=== PATIENT | female | born 2000 | race Two or more races ===

== ENCOUNTER 2022-09-02 17:54 | Inpatient (IN) | payer MEDICAID, OTHER ==
[~2022-09-02] VITALS: Ht 108 cm; Wt 39.9 kg
[2022-09-02] MEDS ORDERED: ALBUTEROL SULF 2.5 MG/0.5ML(0.5%) NEB SOLN HHN ONE (19:45)
[2022-09-02] MEDS ORDERED: IPRATROPIUM BROM 0.5 MG/2.5ML INH SOL HHN ONE (19:45)
[2022-09-02 21:06] LABS: Basophils # (auto) 0 10 ^3/uL (0-0.2); Basophils % (auto) 0.4 % (0.0-2.0); Eosinophils # (auto) 0 10 ^3/uL (0-0.8); Eosinophils % (auto) 0.3 % (0.0-7.0); Hematocrit 38.3 % (36.0-46.0); Hemoglobin 12.1 g/dL (12.2-16.2); Mean Corpuscular Hemoglobin 29.1 pg (28.0-32.0); Mean Corpuscular Hgb Conc. 31.6 g/dL (32.0-36.0); Mean Corpuscular Volume 92.1 fL (80.0-100.0); Monocytes # (auto) 0.6 10 ^3/uL (0-1.3); Monocytes % (auto) 7.6 % (0.0-12.0); Neutrophils # (auto) 5.7 10 ^3/uL (1.6-8.6); Neutrophils % (auto) 67.7 % (37.0-80.0); Nucleated Red Blood Cells % 0.1 %; Red Blood Cells 4.16 10^6/uL (4.0-5.20); Red Cell Distribution Width 14.3 % (11.8-14.3); White Blood Cell 8.4 10^3/uL (4.4-10.8)
[2022-09-02 21:28] LABS: Lactic Acid w/Reflex 2.3 mmol/L (0.4-2.0)
[2022-09-02] MEDS ORDERED: SODIUM CHLORIDE 0.9% 250 ML IV ONE (22:00)
[2022-09-02] MEDS ORDERED: AZITHROMYCIN 500MG/ 250ML 250 ML IV ONE (22:15)
[2022-09-02] MEDS ORDERED: cefTRIAXone 1GM/50ML D5W 50 ML IV ONE (22:30)
[2022-09-02] MEDS ORDERED: ONDANSETRON HCL 4 MG/2 ML VIAL IV PRN (22:30)
[2022-09-02 22:37] LABS: Alanine Aminotransferase 26 U/L (13-56); Chloride 99 mmol/L (98-107); Potassium 4.6 mmol/L (3.5-5.1); Sodium 137 mmol/L (136-145)
[2022-09-02 22:40] LABS: Alkaline Phosphatase 67 U/L (45-117); Bilirubin, Total 0.2 mg/dL (0.2-1.0); Total Protein 7.4 g/dL (6.4-8.2)
[2022-09-02 22:45] LABS: Anion Gap 12 (5-15); Carbon Dioxide 26 mmol/L (21-32); Glucose 100 mg/dL (74-106)
[2022-09-02 22:46] LABS: Albumin 2.4 g/dL (3.4-5.0); Aspartate Aminotransferase 19 U/L (15-37); BUN/Creatinine Ratio 42.9; Blood Urea Nitrogen 12 mg/dL (7-18); Calcium 8.1 mg/dL (8.5-10.1); GFR African American 395 mL/min; GFR Non-African American 326 mL/min
[2022-09-02 22:57] VITALS: BP 127/100
[2022-09-02] MEDS ORDERED: IBUPROFEN 100MG/5ML ORAL SUSP 100 MG/5 ML UD GT PRN (23:00)
[2022-09-02] MEDS ORDERED: ALBUMIN 25% 100 ML IV ONE (23:30)
[2022-09-03] MEDS ORDERED: MORPHINE SULFATE INJ 2 MG/ml SYRG IV PRN (02:00)
[2022-09-03] MEDS ORDERED: NITROGLYCERIN 0.4 MG SL TAB SL PRN (02:00)
[2022-09-03 05:44] LABS: Basophils # (auto) 0 10 ^3/uL (0-0.2); Basophils % (auto) 0.5 % (0.0-2.0); Eosinophils # (auto) 0 10 ^3/uL (0-0.8); Eosinophils % (auto) 0.1 % (0.0-7.0); Hematocrit 32.5 % (36.0-46.0); Hemoglobin 11.1 g/dL (12.2-16.2); Lymphocytes # (auto) 2.3 10 ^3/uL (0.4-5.4); Mean Corpuscular Hemoglobin 30.4 pg (28.0-32.0); Mean Corpuscular Hgb Conc. 34.2 g/dL (32.0-36.0); Mean Corpuscular Volume 88.9 fL (80.0-100.0); Monocytes # (auto) 0.6 10 ^3/uL (0-1.3); Monocytes % (auto) 8.7 % (0.0-12.0); Neutrophils # (auto) 4.2 10 ^3/uL (1.6-8.6); Neutrophils % (auto) 58.7 % (37.0-80.0); Nucleated Red Blood Cells % 0.1 %; Red Blood Cells 3.65 10^6/uL (4.0-5.20); Red Cell Distribution Width 13.6 % (11.8-14.3); White Blood Cell 7.1 10^3/uL (4.4-10.8)
[2022-09-03 06:03] LABS: Potassium 4.3 mmol/L (3.5-5.1)
[2022-09-03 06:11] LABS: Albumin 2.6 g/dL (3.4-5.0); BUN/Creatinine Ratio 42.9; Bilirubin, Total 0.2 mg/dL (0.2-1.0); Calcium 8.4 mg/dL (8.5-10.1); Total Protein 7.2 g/dL (6.4-8.2)
[2022-09-03] MEDS: cefTRIAXone 1GM/50ML D5W 50 ML IV SCH (09:15)
[2022-09-03] MEDS: IPRATROPIUM BROM 0.5 MG/2.5ML INH SOL NEB PRN ×2 (09:29→15:38)
[2022-09-03] MEDS: ALBUTEROL SULF 2.5 MG/0.5ML(0.5%) NEB SOLN NEB PRN ×2 (09:29→15:38)
[2022-09-03] MEDS: ENOXAPARIN SOD 30 MG/0.3 ML SYRINGE SC SCH (10:00)
[2022-09-03] MEDS: SOD CHL 0.45% 1,000 ML IV SCH ×2 (10:13→19:00)
[2022-09-03] MEDS: PHENobarbital 20 MG/5 ML UD GT SCH ×2 (10:13→22:15)
[2022-09-03] MEDS: AZITHROMYCIN 500MG/ 250ML 250 ML IV SCH (10:18)
[2022-09-03] MEDS: FAMOTIDINE (10MG/ML) 2ML VL IV SCH (10:18)
[2022-09-03 22:00] VITALS: BP 106/68
[2022-09-03] MEDS: IPRATROPIUM BROM 0.5 MG/2.5ML INH SOL NEB SCH (23:12)
[2022-09-03] MEDS: ALBUTEROL SULF 2.5 MG/0.5ML(0.5%) NEB SOLN NEB SCH (23:13)
[2022-09-04] MEDS: IPRATROPIUM BROM 0.5 MG/2.5ML INH SOL NEB SCH ×6 (03:22→22:33)
[2022-09-04] MEDS: ALBUTEROL SULF 2.5 MG/0.5ML(0.5%) NEB SOLN NEB SCH ×6 (03:22→22:33)
[2022-09-04 05:00] VITALS: BP 131/67
[2022-09-04 08:00] VITALS: BP 109/71
[2022-09-04 09:09] VITALS: BP 109/71
[2022-09-04] MEDS: cefTRIAXone 1GM/50ML D5W 50 ML IV SCH (09:40)
[2022-09-04] MEDS: FAMOTIDINE (10MG/ML) 2ML VL IV SCH (09:40)
[2022-09-04] MEDS: PHENobarbital 20 MG/5 ML UD GT SCH ×2 (09:41→22:37)
[2022-09-04] MEDS: ENOXAPARIN SOD 30 MG/0.3 ML SYRINGE SC SCH (10:00)
[2022-09-04] MEDS: AZITHROMYCIN 500MG/ 250ML 250 ML IV SCH (10:28)
[2022-09-04] MEDS: SOD CHL 0.45% 1,000 ML IV SCH (11:04)
[2022-09-04 12:24] VITALS: BP 100/62
[2022-09-04 17:00] VITALS: BP 123/80
[2022-09-04] MEDS: FREE WATER GT SCH ×4 (17:16→22:51)
[2022-09-04 22:00] VITALS: BP 136/71
[2022-09-05] VITALS (7 sets, daily range): BP systolic 110–149; BP diastolic 57–99
[2022-09-05] MEDS: FREE WATER GT SCH ×12 (00:03→21:55)
[2022-09-05] MEDS: IPRATROPIUM BROM 0.5 MG/2.5ML INH SOL NEB SCH ×6 (02:32→22:28)
[2022-09-05] MEDS: ALBUTEROL SULF 2.5 MG/0.5ML(0.5%) NEB SOLN NEB SCH ×6 (02:32→22:28)
[2022-09-05] MEDS ORDERED: IBUPROFEN 100MG/5ML ORAL SUSP 100 MG/5 ML UD PO PRN (05:30)
[2022-09-05] MEDS: SOD CHL 0.45% 1,000 ML IV SCH (09:17)
[2022-09-05] MEDS: cefTRIAXone 1GM/50ML D5W 50 ML IV SCH (09:19)
[2022-09-05] MEDS: FAMOTIDINE (10MG/ML) 2ML VL IV SCH (10:02)
[2022-09-05] MEDS: PHENobarbital 20 MG/5 ML UD GT SCH ×2 (10:03→21:39)
[2022-09-05] MEDS: AZITHROMYCIN 500MG/ 250ML 250 ML IV SCH (10:03)
[2022-09-05] MEDS: [UNRECOGNIZED DRUG - MIXTURE] JT SCH (10:27)
[2022-09-05] MEDS ORDERED: SIMETHICONE 40 MG/0.6 ML ORAL DROP GT PRN (11:45)
[2022-09-06] MEDS: FREE WATER GT SCH ×12 (00:22→22:00)
[2022-09-06 02:33] VITALS: BP 120/79
[2022-09-06] MEDS: ALBUTEROL SULF 2.5 MG/0.5ML(0.5%) NEB SOLN NEB SCH ×6 (03:02→22:28)
[2022-09-06] MEDS: IPRATROPIUM BROM 0.5 MG/2.5ML INH SOL NEB SCH ×6 (03:02→22:28)
[2022-09-06 05:00] VITALS: BP 144/96
[2022-09-06] MEDS: SOD CHL 0.45% 1,000 ML IV SCH (06:33)
[2022-09-06 09:16] VITALS: BP 155/100
[2022-09-06] MEDS: FAMOTIDINE (10MG/ML) 2ML VL IV SCH (10:47)
[2022-09-06] MEDS: PHENobarbital 20 MG/5 ML UD GT SCH ×2 (10:47→22:17)
[2022-09-06] MEDS: cefTRIAXone 1GM/50ML D5W 50 ML IV SCH (10:48)
[2022-09-06] MEDS: AZITHROMYCIN 500MG/ 250ML 250 ML IV SCH (10:48)
[2022-09-06] MEDS: [UNRECOGNIZED DRUG - MIXTURE] JT SCH (10:49)
[2022-09-06 12:15] VITALS: BP 140/97
[2022-09-06 17:25] VITALS: BP 164/101
[2022-09-06 22:00] VITALS: BP 153/97
[2022-09-07] MEDS: FREE WATER GT SCH ×12 (02:00→22:15)
[2022-09-07] MEDS: ALBUTEROL SULF 2.5 MG/0.5ML(0.5%) NEB SOLN NEB SCH ×6 (02:28→22:15)
[2022-09-07] MEDS: IPRATROPIUM BROM 0.5 MG/2.5ML INH SOL NEB SCH ×6 (02:28→22:15)
[2022-09-07] MEDS: SOD CHL 0.45% 1,000 ML IV SCH ×2 (03:00→22:31)
[2022-09-07 05:00] VITALS: BP 171/93
[2022-09-07] MEDS ORDERED: hydrALAZINE HCL 20 MG/ML VL IV ONE (06:30)
[2022-09-07 09:00] VITALS: BP 147/100
[2022-09-07] MEDS ORDERED: FLORASTOR (S. BOULARDII) 250 MG CAP PO SCH (10:00)
[2022-09-07] MEDS ORDERED: LOPERAMIDE 1 mg/7.5ml ORAL soln JT ONE (10:15)
[2022-09-07] MEDS: cefTRIAXone 1GM/50ML D5W 50 ML IV SCH (11:18)
[2022-09-07] MEDS: FAMOTIDINE (10MG/ML) 2ML VL IV SCH (11:19)
[2022-09-07] MEDS: AZITHROMYCIN 500MG/ 250ML 250 ML IV SCH (11:19)
[2022-09-07] MEDS: FLORASTOR (S. BOULARDII) 250 MG CAP JT SCH (11:19)
[2022-09-07] MEDS: PHENobarbital 20 MG/5 ML UD GT SCH ×2 (11:51→22:31)
[2022-09-07] MEDS: [UNRECOGNIZED DRUG - MIXTURE] JT SCH (11:51)
[2022-09-07 13:00] VITALS: BP 156/99
[2022-09-07] MEDS ORDERED: AMIODARONE HCL 200 MG TAB PO ONE (16:15)
[2022-09-07 17:00] VITALS: BP 120/75
[2022-09-07] MEDS: AMIODARONE HCL 200 MG TAB PO SCH ×2 (18:23→18:36)
[2022-09-07 22:00] VITALS: BP 133/70
[2022-09-08] MEDS: FREE WATER GT SCH ×12 (00:40→22:16)
[2022-09-08] MEDS: IPRATROPIUM BROM 0.5 MG/2.5ML INH SOL NEB SCH ×2 (02:25→06:33)
[2022-09-08] MEDS: ALBUTEROL SULF 2.5 MG/0.5ML(0.5%) NEB SOLN NEB SCH ×6 (02:25→22:05)
[2022-09-08 05:00] VITALS: BP 142/82
[2022-09-08] MEDS: AMIODARONE HCL 200 MG TAB PO SCH ×2 (06:02→16:39)
[2022-09-08 08:00] VITALS: BP 121/84
[2022-09-08 09:02] VITALS: BP 149/84
[2022-09-08] MEDS ORDERED: METOPROLOL SUCCINATE XL 50 MG TAB PO SCH (10:00)
[2022-09-08] MEDS: cefTRIAXone 1GM/50ML D5W 50 ML IV SCH (10:22)
[2022-09-08] MEDS: PHENobarbital 20 MG/5 ML UD GT SCH ×2 (10:23→22:12)
[2022-09-08] MEDS: FLORASTOR (S. BOULARDII) 250 MG CAP JT SCH (10:23)
[2022-09-08] MEDS: [UNRECOGNIZED DRUG - MIXTURE] JT SCH (10:30)
[2022-09-08] MEDS ORDERED: ATENOLOL 25 MG TAB GT ONE (10:30)
[2022-09-08 13:05] VITALS: BP 121/84
[2022-09-08 17:00] VITALS: BP 148/85
[2022-09-08 22:00] VITALS: BP 122/58
[2022-09-08] MEDS: ATENOLOL 25 MG TAB GT SCH (22:15)
[2022-09-09] MEDS: FREE WATER GT SCH ×8 (02:15→14:30)
[2022-09-09] MEDS: ALBUTEROL SULF 2.5 MG/0.5ML(0.5%) NEB SOLN NEB SCH ×3 (02:22→15:40)
[2022-09-09 03:27] VITALS: BP 122/58
[2022-09-09 05:00] VITALS: BP 137/84
[2022-09-09] MEDS: AMIODARONE HCL 200 MG TAB PO SCH (05:16)
[2022-09-09 09:00] VITALS: BP 94/47
[2022-09-09] MEDS: cefTRIAXone 1GM/50ML D5W 50 ML IV SCH (09:30)
[2022-09-09] MEDS: [UNRECOGNIZED DRUG - MIXTURE] JT SCH (09:59)
[2022-09-09] MEDS: PHENobarbital 20 MG/5 ML UD GT SCH (09:59)
[2022-09-09] MEDS: ATENOLOL 25 MG TAB GT SCH (10:00)
[2022-09-09] MEDS: FLORASTOR (S. BOULARDII) 250 MG CAP JT SCH (10:00)
[2022-09-09] MEDS ORDERED: LANS15CA25 PO (12:19)
[2022-09-09] MEDS ORDERED: PHEN32.44 PO (12:19)
[2022-09-09] MEDS ORDERED: [UNRECOGNIZED DRUG - CODE] IJ (12:20)
[2022-09-09] MEDS ORDERED: AMIT10TA9 GT (12:22)
[2022-09-09] MEDS ORDERED: MULT-1058 PO (12:24)
[2022-09-09] MEDS ORDERED: POLY33504 PO (12:25)
[2022-09-09] MEDS ORDERED: FLUT500M2 INH (12:25)
[2022-09-09] MEDS ORDERED: ACET-1753 PO (12:26)
[2022-09-09] MEDS ORDERED: IBUP100C23 PO (12:26)
[2022-09-09] MEDS ORDERED: DIPH1CHW2 PO (12:27)
[2022-09-09] MEDS ORDERED: SIME80CH6 PO (12:28)
[2022-09-09] MEDS ORDERED: ACE1030 IN (12:29)
[2022-09-09 13:00] VITALS: BP 128/92
[2022-09-09 13:59] VITALS: BP 130/82
== END 2022-09-09 15:15 | disposition home or self-care (01) | DRG 137 ==
LOC: ER 18:00 → OVERFLOW 09-03 01:56 → EAST 09-03 21:14 → TELE-EAST 09-07 19:37
PROVIDERS: ADMIT Nurse Practitioner Family; ATTEND Internal Medicine
DX: J69.0 Pneumonitis due to inhalation of food and vomit (principal); E87.20 Acidosis, unspecified; I47.20 Ventricular tachycardia, unspecified; G80.9 Cerebral palsy, unspecified; E88.09 Other disorders of plasma-protein metabolism, not elsewhere classified; Z20.822 Contact with and (suspected) exposure to COVID-19; F81.9 Developmental disorder of scholastic skills, unspecified; G40.909 Epilepsy, unspecified, not intractable, without status epilepticus; K21.9 Gastro-esophageal reflux disease without esophagitis; Z74.01 Bed confinement status
CPT/HCPCS: 36415; 71045; 80053; 80184; 83605; 83735; 83880; 84443; 84484; 85025; 85379; 87040; 87426; 87804; 93306; 94640; 94668; 96361; 96365; 96367; G0378; J0696; J3490; P9047

== ENCOUNTER 2023-10-02 13:39 | Inpatient (IN) | payer MEDICAID ==
[~2023-10-02] VITALS: Ht 106.7 cm; Wt 44.6 kg
[~2023-10-02 13:39] MED LIST: ACE1030 IN; ACET-1753 PO; AMIT10TA9 GT; DIPH1CHW2 PO; FLUT500M2 INH; IBUP100C23 PO; LANS15CA25 PO; MULT-1058 PO; PHEN32.44 PO; POLY33504 PO; SIME80CH49 PO; [UNRECOGNIZED DRUG - CODE] IJ
[2023-10-02] MEDS ORDERED: SODIUM CHLORIDE 0.9% 500 ML IV ONE (14:15)
[2023-10-02] MEDS ORDERED: PIPERACILLIN-TAZOB 2.25GM 50 ML IV ONE (14:30)
[2023-10-02 14:50] VITALS: PULSE 96
[2023-10-02 15:18] LABS: Basophils # (auto) 0 10 ^3/uL (0-0.2); Basophils % (auto) 0.3 % (0.0-2.0); Eosinophils # (auto) 0 10 ^3/uL (0-0.8); Eosinophils % (auto) 0.1 % (0.0-7.0); Hematocrit 35.5 % (36.0-46.0); Hemoglobin 11.7 g/dL (12.2-16.2); Lymphocytes # (auto) 2.2 10 ^3/uL (0.4-5.4); Lymphocytes % (auto) 15.6 % (10.0-50.0); Mean Corpuscular Hemoglobin 31.4 pg (28.0-32.0); Mean Corpuscular Volume 95.1 fL (80.0-100.0); Monocytes # (auto) 0.9 10 ^3/uL (0-1.3); Monocytes % (auto) 6.5 % (0.0-12.0); Neutrophils # (auto) 10.8 10 ^3/uL (1.6-8.6); Neutrophils % (auto) 77.5 % (37.0-80.0); Red Blood Cells 3.74 10^6/uL (4.0-5.20); Red Cell Distribution Width 14.1 % (11.8-14.3); White Blood Cell 13.9 10^3/uL (4.4-10.8)
[2023-10-02 15:28] LABS: Alanine Aminotransferase 44 U/L (7-40); Albumin 3.1 g/dL (3.2-4.8); Alkaline Phosphatase 54 U/L (46-116); Anion Gap 11 (5-15); Aspartate Aminotransferase 57 U/L (13-40); BUN/Creatinine Ratio 38.9 (10.0-20.0); Blood Urea Nitrogen 7 mg/dL (9-23); Calcium 6.3 mg/dL (8.5-10.1); Carbon Dioxide 23 mmol/L (20-30); Chloride 91 mmol/L (98-107); Glucose 67 mg/dL (74-106); Potassium 4.8 mmol/L (3.5-5.1); Sodium 125 mmol/L (136-145)
[2023-10-02 15:29] LABS: Bilirubin, Total 0.3 mg/dL (0.2-1.0); Total Protein 4.4 g/dL (5.7-8.2)
[2023-10-02 15:31] LABS: INR 1.04 (0.9-1.15); Partial Thromboplastin Time 29.3 SEC (24.5-34.5); Prothrombin Time 10.9 sec (9.3-11.8)
[2023-10-02 16:33] LABS: Magnesium 2.1 mg/dL (1.6-2.6)
[2023-10-02] MEDS ORDERED: IPRATROPIUM BROM 0.5 MG/2.5ML INH SOL ONE (17:07)
[2023-10-02] MEDS ORDERED: ALBUTEROL MEDNEB 2.5 mg/3ml NEB ONE (17:08)
[2023-10-02] MEDS ORDERED: ALBUTEROL MEDNEB 2.5 mg/3ml NEB NEB ONE (17:15)
[2023-10-02] MEDS ORDERED: IPRATROPIUM BROM 0.5 MG/2.5ML INH SOL NEB ONE (17:15)
[2023-10-02] MEDS ORDERED: ONDANSETRON HCL 4 MG/2 ML VIAL IV PRN (19:15)
[2023-10-02] MEDS ORDERED: NITROGLYCERIN 0.4 MG SL TAB SL PRN (19:15)
[2023-10-02] MEDS ORDERED: MORPHINE SULFATE INJ 2 MG/ml SYRG IV PRN (19:15)
[2023-10-02] MEDS ORDERED: ALBUTEROL MEDNEB 2.5 mg/3ml NEB NEB PRN (19:15)
[2023-10-02 20:05] VITALS: PULSE 105; RESP 21; O2SAT 100
[2023-10-02 21:40] VITALS: PULSE 95; PULSE 96; RESP 18; O2SAT 95; O2SAT 96
[2023-10-02] MEDS: ALBUTEROL MEDNEB 2.5 mg/3ml NEB NEB SCH (21:49)
[2023-10-02] MEDS: IPRATROPIUM BROM 0.5 MG/2.5ML INH SOL NEB SCH (21:49)
[2023-10-02 21:56] VITALS: PULSE 101; RESP 20; O2SAT 99
[2023-10-02] MEDS ORDERED: AMITRIPTYLINE HCL 10 MG TAB GT SCH (22:00)
[2023-10-02] MEDS: SODIUM CHLORIDE 0.9% 1,000 ML IV SCH (22:15)
[2023-10-02] MEDS: PIPERACILLIN-TAZOB 2.25GM 50 ML IV SCH (22:15)
[2023-10-02 23:33] VITALS: BP 90/54; PULSE 80; RESP 18; O2SAT 96
[2023-10-03] VITALS (10 sets, daily range): PULSE 73–111; RESP 18–30; O2SAT 94–99
[2023-10-03] MEDS ORDERED: PHENobarbital 20 MG/5 ML UD GT ONE (00:30)
[2023-10-03] MEDS: IPRATROPIUM BROM 0.5 MG/2.5ML INH SOL NEB SCH ×5 (02:27→18:13)
[2023-10-03] MEDS: ALBUTEROL MEDNEB 2.5 mg/3ml NEB NEB SCH ×5 (02:27→18:14)
[2023-10-03] MEDS: ACETYLCYSTEINE IN SCH ×3 (02:28→13:25)
[2023-10-03] MEDS: PIPERACILLIN-TAZOB 2.25GM 50 ML IV SCH ×4 (03:09→21:00)
[2023-10-03] MEDS: SIMETHICONE 80 MG CHEWABLE TABLET PO SCH ×2 (06:00)
[2023-10-03] MEDS ORDERED: ACETYLCYSTEINE 10 %(100MG/ML) SOL 4ML ONE (06:39)
[2023-10-03 06:52] LABS: Alanine Aminotransferase 40 U/L (7-40); Alkaline Phosphatase 65 U/L (46-116); Anion Gap 6 (5-15); Aspartate Aminotransferase 35 U/L (13-40); BUN/Creatinine Ratio 19.2 (10.0-20.0); Blood Urea Nitrogen 5 mg/dL (9-23); Calcium 8.3 mg/dL (8.5-10.1); Carbon Dioxide 27 mmol/L (20-30); Chloride 102 mmol/L (98-107); Glucose 94 mg/dL (74-106); Potassium 3.5 mmol/L (3.5-5.1)
[2023-10-03 06:53] LABS: Bilirubin, Total 0.3 mg/dL (0.2-1.0); Total Protein 6.3 g/dL (5.7-8.2)
[2023-10-03 06:55] LABS: Sodium 135 mmol/L (136-145)
[2023-10-03 06:59] LABS: Basophils # (auto) 0 10 ^3/uL (0-0.2); Basophils % (auto) 0.2 % (0.0-2.0); Eosinophils # (auto) 0 10 ^3/uL (0-0.8); Eosinophils % (auto) 0.2 % (0.0-7.0); Hemoglobin 10.5 g/dL (12.2-16.2); Lymphocytes # (auto) 1.8 10 ^3/uL (0.4-5.4); Lymphocytes % (auto) 17.8 % (10.0-50.0); Mean Corpuscular Hemoglobin 31.9 pg (28.0-32.0); Mean Corpuscular Volume 91.2 fL (80.0-100.0); Monocytes # (auto) 0.8 10 ^3/uL (0-1.3); Monocytes % (auto) 8.4 % (0.0-12.0); Neutrophils # (auto) 7.5 10 ^3/uL (1.6-8.6); Neutrophils % (auto) 73.4 % (37.0-80.0); Red Blood Cells 3.29 10^6/uL (4.0-5.20); Red Cell Distribution Width 13.7 % (11.8-14.3); White Blood Cell 10.1 10^3/uL (4.4-10.8)
[2023-10-03] MEDS: SODIUM CHLORIDE 0.9% 1,000 ML IV SCH (08:35)
[2023-10-03] MEDS ORDERED: AMIT10TA12 JT (08:51)
[2023-10-03] MEDS ORDERED: ACE1030 IN (08:51)
[2023-10-03] MEDS ORDERED: ACET-1442 JT (08:51)
[2023-10-03] MEDS ORDERED: ACE1030 INH (08:51)
[2023-10-03] MEDS ORDERED: DIPH1CHW2 PO (08:51)
[2023-10-03] MEDS ORDERED: [UNRECOGNIZED DRUG - CODE] JT (08:52)
[2023-10-03] MEDS ORDERED: FLUT50SP (08:52)
[2023-10-03] MEDS ORDERED: LANS30CA57 GT (08:52)
[2023-10-03] MEDS ORDERED: NORE1TAB JT (08:52)
[2023-10-03] MEDS ORDERED: POLY33505 JT (08:52)
[2023-10-03] MEDS ORDERED: IBUP100S73 JT (08:52)
[2023-10-03] MEDS ORDERED: AMIO200T33 JT (08:52)
[2023-10-03] MEDS ORDERED: ATEN-60 JT (08:52)
[2023-10-03] MEDS ORDERED: SIME80CH49 JT (08:52)
[2023-10-03] MEDS ORDERED: MULTLIQ28 OR (08:52)
[2023-10-03] MEDS ORDERED: PHEN32.44 JT (08:52)
[2023-10-03] MEDS ORDERED: MULTIPLE VITAMINS W/ MINERALS TAB PO SCH (10:00)
[2023-10-03] MEDS ORDERED: POLYETHYLENE GLYCOL 17 GM PWDR PO SCH (10:00)
[2023-10-03 12:21] LABS: COVID19 ANTIGEN SOFIA FIA NEGATIVE (NEGATIVE); Rapid Influenza A Negative (Negative); Rapid Influenza B Negative (Negative)
[2023-10-03] MEDS ORDERED: Jevity 1.2 Cal/Fiber 1 Liter GT SCH (12:45)
[2023-10-03] MEDS: PHENobarbital 20 MG/5 ML UD GT SCH ×2 (13:14→23:32)
[2023-10-03] MEDS ORDERED: IPRATROPIUM BROM 0.5 MG/2.5ML INH SOL NEB SCH (18:00)
[2023-10-03] MEDS: FREE WATER GT SCH (18:00)
[2023-10-03] MEDS: ACETYLCYSTEINE 20%(200MG/ML) SOL 4ML NEB SCH (18:13)
[2023-10-03] MEDS: AMITRIPTYLINE HCL 10 MG TAB GT SCH (23:30)
[2023-10-04] VITALS (15 sets, daily range): BP systolic 112–116; BP diastolic 77–81; PULSE 72–134; RESP 16–22; TEMP 97.9–98.8; O2SAT 94–100
[2023-10-04] MEDS: FREE WATER GT SCH ×4 (00:30→17:35)
[2023-10-04] MEDS: ALBUTEROL MEDNEB 2.5 mg/3ml NEB NEB SCH ×4 (00:45→19:22)
[2023-10-04] MEDS: ACETYLCYSTEINE 20%(200MG/ML) SOL 4ML NEB SCH ×4 (00:45→19:21)
[2023-10-04] MEDS: IPRATROPIUM BROM 0.5 MG/2.5ML INH SOL NEB SCH ×4 (00:45→19:22)
[2023-10-04] MEDS: PIPERACILLIN-TAZOB 2.25GM 50 ML IV SCH ×4 (03:00→21:22)
[2023-10-04] MEDS: SODIUM CHLORIDE 0.9% 1,000 ML IV SCH (03:15)
[2023-10-04 07:04] LABS: Anion Gap 5 (5-15); Carbon Dioxide 29 mmol/L (20-30); Chloride 102 mmol/L (98-107); Potassium 3.4 mmol/L (3.5-5.1); Sodium 136 mmol/L (136-145)
[2023-10-04 07:05] LABS: Calcium 8.4 mg/dL (8.7-10.4)
[2023-10-04 07:10] LABS: Glucose 119 mg/dL (74-106)
[2023-10-04 07:22] LABS: BUN/Creatinine Ratio 16.7 (10.0-20.0); Blood Urea Nitrogen < 5 mg/dL (9-23)
[2023-10-04 07:23] LABS: Basophils # (auto) 0 10 ^3/uL (0-0.2); Basophils % (auto) 0.5 % (0.0-2.0); Eosinophils # (auto) 0.1 10 ^3/uL (0-0.8); Eosinophils % (auto) 0.5 % (0.0-7.0); Hemoglobin 10.4 g/dL (12.2-16.2); Lymphocytes % (auto) 19.9 % (10.0-50.0); Mean Corpuscular Hemoglobin 31.5 pg (28.0-32.0); Mean Corpuscular Hgb Conc. 33.5 g/dL (32.0-36.0); Mean Corpuscular Volume 94.1 fL (80.0-100.0); Monocytes # (auto) 0.9 10 ^3/uL (0-1.3); Monocytes % (auto) 9.2 % (0.0-12.0); Neutrophils # (auto) 7.1 10 ^3/uL (1.6-8.6); Neutrophils % (auto) 69.9 % (37.0-80.0); Nucleated Red Blood Cells % 0.1 %; Red Blood Cells 3.29 10^6/uL (4.0-5.20); Red Cell Distribution Width 13.6 % (11.8-14.3); White Blood Cell 10.1 10^3/uL (4.4-10.8)
[2023-10-04] MEDS: PHENobarbital 20 MG/5 ML UD GT SCH ×2 (09:19→21:41)
[2023-10-04] MEDS ORDERED: SIMETHICONE 40 MG/0.6 ML ORAL DROP PO PRN (10:45)
[2023-10-04] MEDS ORDERED: SIMETHICONE 40 MG/0.6 ML ORAL DROP JT PRN (11:00)
[2023-10-04] MEDS: SIMETHICONE 40 MG/0.6 ML ORAL DROP JT PRN (12:05)
[2023-10-04] MEDS: AMITRIPTYLINE HCL 10 MG TAB GT SCH (21:38)
[2023-10-04] MEDS: DOCUSATE ORAL LIQUID 100 MG/10 ML UD GT SCH (21:41)
[2023-10-05] VITALS (10 sets, daily range): BP systolic 113–132; BP diastolic 85–98; PULSE 65–136; RESP 17–21; TEMP 97.6–98.1; O2SAT 92–100
[2023-10-05] MEDS: FREE WATER GT SCH ×4 (00:22→18:00)
[2023-10-05] MEDS: IPRATROPIUM BROM 0.5 MG/2.5ML INH SOL NEB SCH ×5 (00:28→18:26)
[2023-10-05] MEDS: ACETYLCYSTEINE 20%(200MG/ML) SOL 4ML NEB SCH ×4 (00:28→18:26)
[2023-10-05] MEDS: ALBUTEROL MEDNEB 2.5 mg/3ml NEB NEB SCH ×4 (00:29→18:26)
[2023-10-05] MEDS: PIPERACILLIN-TAZOB 2.25GM 50 ML IV SCH ×4 (03:06→21:03)
[2023-10-05 05:35] LABS: Hematocrit 33.5 % (36.0-46.0); Hemoglobin 11.3 g/dL (12.2-16.2); Mean Corpuscular Hemoglobin 31.8 pg (28.0-32.0); Mean Corpuscular Hgb Conc. 33.8 g/dL (32.0-36.0); Mean Corpuscular Volume 93.9 fL (80.0-100.0); Red Blood Cells 3.57 10^6/uL (4.0-5.20); Red Cell Distribution Width 13.6 % (11.8-14.3); White Blood Cell 9.1 10^3/uL (4.4-10.8)
[2023-10-05 05:49] LABS: Chloride 101 mmol/L (98-107); Potassium 3.8 mmol/L (3.5-5.1); Sodium 138 mmol/L (136-145)
[2023-10-05 05:50] LABS: Anion Gap 11 (5-15); Carbon Dioxide 26 mmol/L (20-30)
[2023-10-05 05:55] LABS: Glucose 88 mg/dL (74-106)
[2023-10-05] MEDS: OMEPRAZOLE 20MG/10ML ORAL SUSP GT SCH (06:12)
[2023-10-05] MEDS: Jevity 1.2 Cal/Fiber 1 Liter GT SCH (06:22)
[2023-10-05 06:46] LABS: BUN/Creatinine Ratio 17.9 (10.0-20.0); Blood Urea Nitrogen < 5 mg/dL (9-23)
[2023-10-05 06:48] LABS: Basophils % (manual) 0 (0.0-2.0); Blast Cells 0; Eosinophils % (manual) 0 (0-7); Metamyelocytes % 0; Myelocytes % 0; Reactive Lymphocytes 0
[2023-10-05 09:12] LABS: Band Neutrophils % (manual) 4; Lymphocytes % (manual) 25 (10.0-50.0); Monocytes % (manual) 9 (0-12); Promyelocytes % 2
[2023-10-05 09:13] LABS: Platelet Estimate Adequate; Toxic Granulation Slight
[2023-10-05] MEDS: DOCUSATE ORAL LIQUID 100 MG/10 ML UD GT SCH ×3 (10:00→21:04)
[2023-10-05] MEDS: FLORASTOR (S. BOULARDII) 250 MG CAP PO SCH (10:03)
[2023-10-05] MEDS: AMITRIPTYLINE HCL 10 MG TAB GT SCH ×2 (10:04→21:04)
[2023-10-05] MEDS: PHENobarbital 20 MG/5 ML UD GT SCH ×2 (10:04→21:04)
[2023-10-05] MEDS: ALYACEN GT SCH (15:33)
[2023-10-06] VITALS (13 sets, daily range): BP systolic 110–130; BP diastolic 65–90; PULSE 110–132; RESP 18–28; TEMP 97.1–100.3; O2SAT 93–99
[2023-10-06] MEDS: FREE WATER GT SCH ×4 (00:17→18:29)
[2023-10-06] MEDS: PIPERACILLIN-TAZOB 2.25GM 50 ML IV SCH ×4 (03:08→21:07)
[2023-10-06 06:14] LABS: Basophils # (auto) 0 10 ^3/uL (0-0.2); Basophils % (auto) 0.4 % (0.0-2.0); Eosinophils # (auto) 0.1 10 ^3/uL (0-0.8); Eosinophils % (auto) 1.1 % (0.0-7.0); Hematocrit 31.4 % (36.0-46.0); Hemoglobin 10.4 g/dL (12.2-16.2); Lymphocytes # (auto) 2.4 10 ^3/uL (0.4-5.4); Lymphocytes % (auto) 24.9 % (10.0-50.0); Mean Corpuscular Hemoglobin 30.8 pg (28.0-32.0); Mean Corpuscular Volume 93.3 fL (80.0-100.0); Monocytes # (auto) 0.7 10 ^3/uL (0-1.3); Monocytes % (auto) 7.8 % (0.0-12.0); Neutrophils # (auto) 6.3 10 ^3/uL (1.6-8.6); Neutrophils % (auto) 65.8 % (37.0-80.0); Red Blood Cells 3.36 10^6/uL (4.0-5.20); Red Cell Distribution Width 13.7 % (11.8-14.3); White Blood Cell 9.5 10^3/uL (4.4-10.8)
[2023-10-06] MEDS: OMEPRAZOLE 20MG/10ML ORAL SUSP GT SCH (06:17)
[2023-10-06 06:25] LABS: Anion Gap 8 (5-15); Carbon Dioxide 28 mmol/L (20-30); Chloride 105 mmol/L (98-107); Potassium 4.6 mmol/L (3.5-5.1); Sodium 141 mmol/L (136-145)
[2023-10-06 06:26] LABS: Calcium 8.5 mg/dL (8.7-10.4)
[2023-10-06 06:31] LABS: BUN/Creatinine Ratio 22.2 (10.0-20.0); Blood Urea Nitrogen 6 mg/dL (9-23); Glucose 86 mg/dL (74-106)
[2023-10-06] MEDS: Jevity 1.2 Cal/Fiber 1 Liter GT SCH (06:45)
[2023-10-06] MEDS: IPRATROPIUM BROM 0.5 MG/2.5ML INH SOL NEB SCH ×3 (07:33→18:55)
[2023-10-06] MEDS: ALBUTEROL MEDNEB 2.5 mg/3ml NEB NEB SCH ×3 (07:33→18:55)
[2023-10-06] MEDS: ACETYLCYSTEINE 20%(200MG/ML) SOL 4ML NEB SCH ×3 (07:34→18:56)
[2023-10-06] MEDS: DOCUSATE ORAL LIQUID 100 MG/10 ML UD GT SCH ×2 (10:00→21:10)
[2023-10-06] MEDS: FLORASTOR (S. BOULARDII) 250 MG CAP PO SCH (10:56)
[2023-10-06] MEDS: PHENobarbital 20 MG/5 ML UD GT SCH ×2 (10:57→21:10)
[2023-10-06] MEDS: ALYACEN GT SCH (10:57)
[2023-10-06] MEDS: AMITRIPTYLINE HCL 10 MG TAB GT SCH (21:09)
[2023-10-07] VITALS (14 sets, daily range): BP systolic 84–142; BP diastolic 64–90; PULSE 94–130; RESP 16–30; TEMP 97.1–98.9; O2SAT 91–99
[2023-10-07] MEDS: FREE WATER GT SCH ×4 (00:18→18:00)
[2023-10-07] MEDS: PIPERACILLIN-TAZOB 2.25GM 50 ML IV SCH ×4 (03:22→21:09)
[2023-10-07] MEDS: ACETYLCYSTEINE 20%(200MG/ML) SOL 4ML NEB SCH ×3 (07:00→18:28)
[2023-10-07] MEDS: IPRATROPIUM BROM 0.5 MG/2.5ML INH SOL NEB SCH ×3 (07:00→18:27)
[2023-10-07] MEDS: ALBUTEROL MEDNEB 2.5 mg/3ml NEB NEB SCH ×3 (07:00→18:27)
[2023-10-07] MEDS: OMEPRAZOLE 20MG/10ML ORAL SUSP GT SCH (07:09)
[2023-10-07 08:37] LABS: Mean Corpuscular Hemoglobin 31.1 pg (28.0-32.0); Monocytes # (auto) 0.9 10 ^3/uL (0-1.3)
[2023-10-07 08:38] LABS: Basophils # (auto) 0 10 ^3/uL (0-0.2); Basophils % (auto) 0.3 % (0.0-2.0); Eosinophils # (auto) 0 10 ^3/uL (0-0.8); Eosinophils % (auto) 0.2 % (0.0-7.0); Hematocrit 37.5 % (36.0-46.0); Hemoglobin 12.2 g/dL (12.2-16.2); Lymphocytes # (auto) 3.3 10 ^3/uL (0.4-5.4); Mean Corpuscular Hgb Conc. 32.5 g/dL (32.0-36.0); Mean Corpuscular Volume 95.8 fL (80.0-100.0); Monocytes % (auto) 6.6 % (0.0-12.0); Neutrophils # (auto) 9.1 10 ^3/uL (1.6-8.6); Neutrophils % (auto) 67.9 % (37.0-80.0); Red Blood Cells 3.91 10^6/uL (4.0-5.20); White Blood Cell 13.3 10^3/uL (4.4-10.8)
[2023-10-07 08:50] LABS: Chloride 104 mmol/L (98-107); Potassium 4.2 mmol/L (3.5-5.1); Sodium 138 mmol/L (136-145)
[2023-10-07 08:51] LABS: Anion Gap 11 (5-15); Carbon Dioxide 23 mmol/L (20-30)
[2023-10-07 08:52] LABS: Calcium 9.7 mg/dL (8.5-10.1)
[2023-10-07 08:56] LABS: Glucose 88 mg/dL (74-106)
[2023-10-07 09:13] LABS: BUN/Creatinine Ratio 16.1 (10.0-20.0); Blood Urea Nitrogen < 5 mg/dL (9-23)
[2023-10-07] MEDS: FLORASTOR (S. BOULARDII) 250 MG CAP PO SCH (09:34)
[2023-10-07] MEDS: ALYACEN GT SCH (09:35)
[2023-10-07] MEDS: PHENobarbital 20 MG/5 ML UD GT SCH ×2 (09:40→22:05)
[2023-10-07] MEDS: DOCUSATE ORAL LIQUID 100 MG/10 ML UD GT SCH ×2 (10:00→22:00)
[2023-10-07] MEDS ORDERED: SODIUM CHLORIDE 0.9% 250 ML IV ONE (15:30)
[2023-10-07] MEDS: AMITRIPTYLINE HCL 10 MG TAB GT SCH (22:04)
[2023-10-08] VITALS (12 sets, daily range): BP systolic 100–130; BP diastolic 81–94; PULSE 75–133; RESP 16–26; TEMP 98–98.1; O2SAT 94–99
[2023-10-08] MEDS: FREE WATER GT SCH ×4 (00:10→17:40)
[2023-10-08] MEDS: ALBUTEROL MEDNEB 2.5 mg/3ml NEB NEB SCH ×4 (00:41→18:39)
[2023-10-08] MEDS: IPRATROPIUM BROM 0.5 MG/2.5ML INH SOL NEB SCH ×4 (00:41→18:38)
[2023-10-08] MEDS: ACETYLCYSTEINE 20%(200MG/ML) SOL 4ML NEB SCH ×4 (00:41→18:38)
[2023-10-08] MEDS: PIPERACILLIN-TAZOB 2.25GM 50 ML IV SCH ×2 (03:08→09:34)
[2023-10-08] MEDS: OMEPRAZOLE 20MG/10ML ORAL SUSP GT SCH (06:28)
[2023-10-08] MEDS: PHENobarbital 20 MG/5 ML UD GT SCH ×2 (09:35→22:45)
[2023-10-08] MEDS: DOCUSATE ORAL LIQUID 100 MG/10 ML UD GT SCH ×2 (09:35→22:00)
[2023-10-08] MEDS: ALYACEN GT SCH (10:00)
[2023-10-08] MEDS ORDERED: VANCOMYCIN PER PHARMACY 0 MG IV SCH (14:00)
[2023-10-08] MEDS: VANCOMYCIN 750mg/250ml 250 ML IV SCH (18:19)
[2023-10-08] MEDS: FLORASTOR (S. BOULARDII) 250 MG CAP PO SCH (18:19)
[2023-10-08] MEDS: AMITRIPTYLINE HCL 10 MG TAB GT SCH (22:37)
[2023-10-09] VITALS (11 sets, daily range): BP systolic 117–139; BP diastolic 76–94; PULSE 98–152; RESP 2–22; TEMP 96.4–98.6; O2SAT 92–99
[2023-10-09] MEDS: FREE WATER GT SCH ×5 (01:06→22:37)
[2023-10-09] MEDS: VANCOMYCIN 750mg/250ml 250 ML IV SCH ×2 (03:42→18:06)
[2023-10-09] MEDS: OMEPRAZOLE 20MG/10ML ORAL SUSP GT SCH (06:21)
[2023-10-09 06:35] LABS: Chloride 104 mmol/L (98-107); Potassium 4.8 mmol/L (3.5-5.1); Sodium 137 mmol/L (136-145)
[2023-10-09 06:36] LABS: Anion Gap 7 (5-15); Calcium 9.2 mg/dL (8.7-10.4); Carbon Dioxide 26 mmol/L (20-30)
[2023-10-09 06:41] LABS: BUN/Creatinine Ratio 15.2 (10.0-20.0); Blood Urea Nitrogen 5 mg/dL (9-23); Glucose 77 mg/dL (74-106)
[2023-10-09] MEDS: IPRATROPIUM BROM 0.5 MG/2.5ML INH SOL NEB SCH ×4 (06:44→19:12)
[2023-10-09] MEDS: ALBUTEROL MEDNEB 2.5 mg/3ml NEB NEB SCH ×4 (06:44→19:12)
[2023-10-09] MEDS: ACETYLCYSTEINE 20%(200MG/ML) SOL 4ML NEB SCH ×4 (06:45→19:13)
[2023-10-09 07:39] LABS: Basophils # (auto) 0.1 10 ^3/uL (0-0.2); Basophils % (auto) 0.5 % (0.0-2.0); Eosinophils # (auto) 0.1 10 ^3/uL (0-0.8); Eosinophils % (auto) 0.8 % (0.0-7.0); Hematocrit 35.8 % (36.0-46.0); Lymphocytes # (auto) 3.5 10 ^3/uL (0.4-5.4); Lymphocytes % (auto) 31.5 % (10.0-50.0); Mean Corpuscular Hemoglobin 31.8 pg (28.0-32.0); Mean Corpuscular Hgb Conc. 33.4 g/dL (32.0-36.0); Mean Corpuscular Volume 95.1 fL (80.0-100.0); Monocytes # (auto) 0.7 10 ^3/uL (0-1.3); Monocytes % (auto) 6.1 % (0.0-12.0); Neutrophils # (auto) 6.7 10 ^3/uL (1.6-8.6); Neutrophils % (auto) 61.1 % (37.0-80.0); Red Blood Cells 3.77 10^6/uL (4.0-5.20)
[2023-10-09] MEDS ORDERED: FUROSEMIDE 20 MG/2 ML VIAL IV ONE (08:45)
[2023-10-09] MEDS ORDERED: DOCUSATE ORAL LIQUID 100 MG/10 ML UD GT PRN (09:45)
[2023-10-09] MEDS ORDERED: DOCUSATE ORAL LIQUID 100 MG/10 ML UD GT SCH (10:00)
[2023-10-09] MEDS: ALYACEN GT SCH (10:00)
[2023-10-09] MEDS: levoFLOXacin 500MG 100 ML IV SCH (10:17)
[2023-10-09] MEDS: FLORASTOR (S. BOULARDII) 250 MG CAP PO SCH (10:17)
[2023-10-09] MEDS: PHENobarbital 20 MG/5 ML UD GT SCH ×2 (10:21→22:35)
[2023-10-09] MEDS ORDERED: METOPROLOL TARTRATE 1MG/1ML-5ML VIAL IV ONE ×2 (13:00→19:45)
[2023-10-09] MEDS ORDERED: SODIUM CHLORIDE 0.9% 500 ML IV ONE (19:45)
[2023-10-09] MEDS ORDERED: SODIUM CHLORIDE 0.9% 1,000 ML IV SCH (20:30)
[2023-10-09] MEDS: AMITRIPTYLINE HCL 10 MG TAB GT SCH (22:15)
[2023-10-09 22:25] LABS: Magnesium 2.3 mg/dL (1.6-2.6)
[2023-10-10] VITALS (12 sets, daily range): BP systolic 132–151; BP diastolic 90–115; PULSE 120–134; RESP 16–100; TEMP 96.8–98; O2SAT 97–100
[2023-10-10] MEDS: FREE WATER GT SCH ×3 (05:47→18:05)
[2023-10-10] MEDS: OMEPRAZOLE 20MG/10ML ORAL SUSP GT SCH (05:47)
[2023-10-10 06:15] LABS: Anion Gap 11 (5-15); Calcium 9.6 mg/dL (8.5-10.1); Carbon Dioxide 25 mmol/L (20-30); Chloride 105 mmol/L (98-107); Potassium 3.5 mmol/L (3.5-5.1); Sodium 141 mmol/L (136-145)
[2023-10-10] MEDS: ALBUTEROL MEDNEB 2.5 mg/3ml NEB NEB SCH ×3 (06:18→19:39)
[2023-10-10] MEDS: IPRATROPIUM BROM 0.5 MG/2.5ML INH SOL NEB SCH ×3 (06:18→19:39)
[2023-10-10] MEDS: ACETYLCYSTEINE 20%(200MG/ML) SOL 4ML NEB SCH ×3 (06:18→19:39)
[2023-10-10 06:21] LABS: BUN/Creatinine Ratio 20.5 (10.0-20.0); Blood Urea Nitrogen 9 mg/dL (9-23); Glucose 86 mg/dL (74-106)
[2023-10-10 06:38] LABS: Eosinophils # (auto) 0 10 ^3/uL (0-0.8); Eosinophils % (auto) 0.3 % (0.0-7.0); Hemoglobin 11.1 g/dL (12.2-16.2); Lymphocytes # (auto) 2.8 10 ^3/uL (0.4-5.4); Nucleated Red Blood Cells % 0.1 %
[2023-10-10 06:40] LABS: Basophils # (auto) 0.1 10 ^3/uL (0-0.2); Basophils % (auto) 0.6 % (0.0-2.0); Hematocrit 33.1 % (36.0-46.0); Lymphocytes % (auto) 22.5 % (10.0-50.0); Mean Corpuscular Hemoglobin 31.1 pg (28.0-32.0); Mean Corpuscular Hgb Conc. 33.6 g/dL (32.0-36.0); Mean Corpuscular Volume 92.5 fL (80.0-100.0); Monocytes # (auto) 0.9 10 ^3/uL (0-1.3); Monocytes % (auto) 7.2 % (0.0-12.0); Neutrophils # (auto) 8.7 10 ^3/uL (1.6-8.6); Neutrophils % (auto) 69.4 % (37.0-80.0); Red Blood Cells 3.58 10^6/uL (4.0-5.20); Red Cell Distribution Width 13.7 % (11.8-14.3); White Blood Cell 12.5 10^3/uL (4.4-10.8)
[2023-10-10] MEDS: VANCOMYCIN 750mg/250ml 250 ML IV SCH ×2 (09:43→11:20)
[2023-10-10] MEDS: METOPROLOL TARTRATE 25 MG TAB PO SCH ×2 (09:50→21:32)
[2023-10-10] MEDS: FLORASTOR (S. BOULARDII) 250 MG CAP PO SCH (09:52)
[2023-10-10] MEDS: PHENobarbital 20 MG/5 ML UD GT SCH ×2 (09:52→21:24)
[2023-10-10] MEDS: NORTREL GT SCH (10:07)
[2023-10-10] MEDS: levoFLOXacin 500MG 100 ML IV SCH (11:15)
[2023-10-10] MEDS: ACETAMINOPHEN 650 mg PER 20.3 mL UD GT PRN ×2 (13:13→21:34)
[2023-10-10] MEDS: AMITRIPTYLINE HCL 10 MG TAB GT SCH (21:23)
[2023-10-11] VITALS (14 sets, daily range): BP systolic 121–147; BP diastolic 77–104; PULSE 105–133; RESP 16–20; TEMP 97.8–98.3; O2SAT 93–100
[2023-10-11] MEDS: FREE WATER GT SCH ×4 (00:33→18:30)
[2023-10-11 03:21] LABS: Basophils # (auto) 0.1 10 ^3/uL (0-0.2); Basophils % (auto) 0.6 % (0.0-2.0); Lymphocytes % (auto) 29.2 % (10.0-50.0); Monocytes # (auto) 0.6 10 ^3/uL (0-1.3); Neutrophils # (auto) 6.5 10 ^3/uL (1.6-8.6)
[2023-10-11 03:22] LABS: Eosinophils # (auto) 0 10 ^3/uL (0-0.8); Eosinophils % (auto) 0.3 % (0.0-7.0); Hemoglobin 11.7 g/dL (12.2-16.2); Mean Corpuscular Hgb Conc. 33.3 g/dL (32.0-36.0); Monocytes % (auto) 5.9 % (0.0-12.0); Red Blood Cells 3.76 10^6/uL (4.0-5.20); Red Cell Distribution Width 14.1 % (11.8-14.3); White Blood Cell 10.2 10^3/uL (4.4-10.8)
[2023-10-11 03:40] LABS: Chloride 103 mmol/L (98-107); Potassium 3.7 mmol/L (3.5-5.1); Sodium 137 mmol/L (136-145)
[2023-10-11 03:41] LABS: Anion Gap 7 (5-15); Carbon Dioxide 27 mmol/L (20-30)
[2023-10-11 03:42] LABS: Calcium 9.6 mg/dL (8.5-10.1)
[2023-10-11 03:47] LABS: BUN/Creatinine Ratio 19.5 (10.0-20.0); Blood Urea Nitrogen 8 mg/dL (9-23); Glucose 86 mg/dL (74-106)
[2023-10-11] MEDS: VANCOMYCIN 750mg/250ml 250 ML IV SCH ×3 (04:00→16:57)
[2023-10-11] MEDS: ACETYLCYSTEINE 20%(200MG/ML) SOL 4ML NEB SCH ×3 (06:33→18:29)
[2023-10-11] MEDS: ALBUTEROL MEDNEB 2.5 mg/3ml NEB NEB SCH ×3 (06:33→18:29)
[2023-10-11] MEDS: IPRATROPIUM BROM 0.5 MG/2.5ML INH SOL NEB SCH ×3 (06:33→18:28)
[2023-10-11] MEDS: OMEPRAZOLE 20MG/10ML ORAL SUSP GT SCH (07:16)
[2023-10-11] MEDS: FLORASTOR (S. BOULARDII) 250 MG CAP PO SCH (09:39)
[2023-10-11] MEDS: ACETAMINOPHEN 650 mg PER 20.3 mL UD GT PRN ×2 (09:39→20:16)
[2023-10-11] MEDS: METOPROLOL TARTRATE 25 MG TAB PO SCH ×2 (09:40→20:17)
[2023-10-11] MEDS: NORTREL GT SCH (09:49)
[2023-10-11] MEDS: PHENobarbital 20 MG/5 ML UD GT SCH ×2 (09:49→20:18)
[2023-10-11] MEDS: levoFLOXacin 500MG 100 ML IV SCH (10:00)
[2023-10-11] MEDS: SODIUM CHLORIDE 0.9% 1,000 ML IV SCH ×2 (17:00→18:30)
[2023-10-11] MEDS: AMITRIPTYLINE HCL 10 MG TAB GT SCH (20:17)
[2023-10-12] MEDS: FREE WATER GT SCH ×3 (00:10→11:57)
[2023-10-12] MEDS: VANCOMYCIN 750mg/250ml 250 ML IV SCH ×2 (03:58→04:58)
[2023-10-12] MEDS: OMEPRAZOLE 20MG/10ML ORAL SUSP GT SCH (06:36)
[2023-10-12 08:00] VITALS: PULSE 101; PULSE 107; PULSE 132; RESP 18; RESP 20; O2SAT 96
[2023-10-12] MEDS: ALBUTEROL MEDNEB 2.5 mg/3ml NEB NEB SCH ×2 (08:07→12:25)
[2023-10-12] MEDS: ACETYLCYSTEINE 20%(200MG/ML) SOL 4ML NEB SCH ×2 (08:07→12:25)
[2023-10-12] MEDS: IPRATROPIUM BROM 0.5 MG/2.5ML INH SOL NEB SCH ×2 (08:07→12:24)
[2023-10-12 08:10] VITALS: PULSE 102; RESP 20; O2SAT 96
[2023-10-12 11:08] LABS: Eosinophils # (auto) 0.1 10 ^3/uL (0-0.8); Eosinophils % (auto) 0.5 % (0.0-7.0); Hemoglobin 11.8 g/dL (12.2-16.2); Lymphocytes # (auto) 2.7 10 ^3/uL (0.4-5.4); Monocytes # (auto) 0.8 10 ^3/uL (0-1.3)
[2023-10-12 11:11] LABS: Basophils # (auto) 0.1 10 ^3/uL (0-0.2); Basophils % (auto) 0.5 % (0.0-2.0); Hematocrit 35.2 % (36.0-46.0); Lymphocytes % (auto) 23.1 % (10.0-50.0); Mean Corpuscular Hemoglobin 31.2 pg (28.0-32.0); Mean Corpuscular Hgb Conc. 33.6 g/dL (32.0-36.0); Mean Corpuscular Volume 92.8 fL (80.0-100.0); Monocytes % (auto) 6.6 % (0.0-12.0); Neutrophils % (auto) 69.3 % (37.0-80.0); Red Blood Cells 3.79 10^6/uL (4.0-5.20); Red Cell Distribution Width 13.9 % (11.8-14.3); White Blood Cell 11.6 10^3/uL (4.4-10.8)
[2023-10-12 11:35] LABS: Anion Gap 8 (5-15); Carbon Dioxide 27 mmol/L (20-30); Chloride 104 mmol/L (98-107); Potassium 3.7 mmol/L (3.5-5.1); Sodium 139 mmol/L (136-145)
[2023-10-12 11:36] LABS: Calcium 9.5 mg/dL (8.5-10.1)
[2023-10-12 11:41] LABS: BUN/Creatinine Ratio 18.2 (10.0-20.0); Blood Urea Nitrogen 6 mg/dL (9-23); Glucose 82 mg/dL (74-106)
[2023-10-12] MEDS: levoFLOXacin 500MG 100 ML IV SCH (11:46)
[2023-10-12] MEDS: ACETAMINOPHEN 650 mg PER 20.3 mL UD GT PRN (11:47)
[2023-10-12] MEDS: FLORASTOR (S. BOULARDII) 250 MG CAP PO SCH (11:53)
[2023-10-12] MEDS: METOPROLOL TARTRATE 25 MG TAB PO SCH (11:53)
[2023-10-12] MEDS: NORTREL GT SCH (11:55)
[2023-10-12] MEDS: PHENobarbital 20 MG/5 ML UD GT SCH (11:56)
[2023-10-12] MEDS: SIMETHICONE 40 MG/0.6 ML ORAL DROP JT PRN (12:09)
[2023-10-12 12:27] VITALS: PULSE 101; RESP 20; O2SAT 97; O2SAT 98
[2023-10-12 12:37] VITALS: PULSE 102; RESP 20; O2SAT 98
[2023-10-12] MEDS ORDERED: LEVO750T40 PO (14:14)
[2023-10-12 16:31] VITALS: BP 127/94; PULSE 132; RESP 20; TEMP 98.1; O2SAT 96
== END 2023-10-12 17:28 | disposition home or self-care (01) | DRG 720 ==
LOC: EDBD 13:39 → ER 13:39 → TELE 19:19 → TELE-WESTW 10-03 22:42
PROVIDERS: ADMIT Nurse Practitioner Family; ATTEND Internal Medicine
PROC: 05H933Z Insertion of Infusion Device into Right Brachial Vein, Percutaneous Approach (ICD-10-PCS; principal; 2023-10-11)
PROC: B54MZZA Ultrasonography of Right Upper Extremity Veins, Guidance (ICD-10-PCS; 2023-10-11)
DX: A41.9 Sepsis, unspecified organism (principal); J96.01 Acute respiratory failure with hypoxia; J15.1 Pneumonia due to Pseudomonas; E46 Unspecified protein-calorie malnutrition; I12.0 Hypertensive chronic kidney disease with stage 5 chronic kidney disease or end stage renal disease; J15.20 Pneumonia due to staphylococcus, unspecified; N18.6 End stage renal disease; E87.1 Hypo-osmolality and hyponatremia; Z20.822 Contact with and (suspected) exposure to COVID-19; E88.09 Other disorders of plasma-protein metabolism, not elsewhere classified; J44.0 Chronic obstructive pulmonary disease with (acute) lower respiratory infection; E11.22 Type 2 diabetes mellitus with diabetic chronic kidney disease; F41.9 Anxiety disorder, unspecified; G80.9 Cerebral palsy, unspecified; E78.5 Hyperlipidemia, unspecified; E07.9 Disorder of thyroid, unspecified; Z68.39 Body mass index [BMI] 39.0-39.9, adult; Z74.01 Bed confinement status
CPT/HCPCS: 36415; 71045; 80048; 80053; 80202; 83605; 83735; 83880; 84075; 84484; 84702; 85007; 85025; 85027; 85379; 85610; 85730; 87040; 87070; 87077; 87186; 87205; 87426; 87804; 93005; 94002; 94640; 94668; G0378; J1956; J2543